=== PATIENT | male | born 1955 | race Caucasian/White ===

== ENCOUNTER 2020-01-08 14:22 | Emergency (ER) | payer BC, OTHER ==
[~2020-01-08] VITALS: Ht 172.7 cm; Wt 98.2 kg
[2020-01-08 15:17] VITALS: BP 162/89
== END 2020-01-08 15:30 | disposition home or self-care (01) ==
LOC: FSED 14:50
DX: S00.83XA Contusion of other part of head, initial encounter (principal); W01.190A Fall on same level from slipping, tripping and stumbling with subsequent striking against furniture, initial encounter; Y93.01 Activity, walking, marching and hiking; Y92.008 Other place in unspecified non-institutional (private) residence as the place of occurrence of the external cause; I10 Essential (primary) hypertension; E78.5 Hyperlipidemia, unspecified
CPT/HCPCS: 70450; 99283

== ENCOUNTER 2020-03-04 11:34 | Emergency (ER) | payer OTHER ==
[~2020-03-04] VITALS: Ht 175.3 cm; Wt 97.7 kg
[2020-03-04] MEDS ORDERED: CLARINEX-D 121 EACH (11:55)
[2020-03-04] MEDS ORDERED: BACITRACIN ZINC 15 GM OINT TOP STA (13:18)
[2020-03-04] MEDS ORDERED: BACTRIM DS TAB1 EACH PO (13:26)
[2020-03-04] MEDS ORDERED: CIPRO500 MG PO (13:26)
[2020-03-04] MEDS ORDERED: MOTRIN800 MG PO (13:26)
[2020-03-04] MEDS ORDERED: BACITRACIN ZINC 0.9GM TP ONE (13:31)
[2020-03-04 13:36] VITALS: BP 153/82
== END 2020-03-04 13:40 | disposition home or self-care (01) ==
LOC: FSED 11:45
DX: S92.535A Nondisplaced fracture of distal phalanx of left lesser toe(s), initial encounter for closed fracture (principal); W22.03XA Walked into furniture, initial encounter; Y93.01 Activity, walking, marching and hiking; Y92.008 Other place in unspecified non-institutional (private) residence as the place of occurrence of the external cause; E78.5 Hyperlipidemia, unspecified; G62.9 Polyneuropathy, unspecified
CPT/HCPCS: 99283

== ENCOUNTER 2020-04-26 10:26 | Emergency (ER) | payer OTHER ==
[~2020-04-26] VITALS: Ht 172.7 cm; Wt 95.3 kg
[~2020-04-26 10:26] MED LIST: BACTRIM DS TAB1 EACH PO; CIPRO500 MG PO; CLARINEX-D 121 EACH; MOTRIN800 MG PO
[2020-04-26] MEDS ORDERED: SODIUM CHLORIDE 0.9% 1000ML 1,000 ML IV STA (10:35)
[2020-04-26] MEDS ORDERED: EPINEPHRINE HCL 1:1000 1ML 1 MG/ML AMP INJ STA (10:35)
[2020-04-26] MEDS ORDERED: METHYLPREDNISOLONE SOD SUCC 125 MG/2ML VIAL IV STA (10:35)
[2020-04-26] MEDS ORDERED: FAMOTIDINE 20 MG/2 ML VIAL IV STA (10:35)
[2020-04-26] MEDS ORDERED: DIPHENHYDRAMINE HCL INJ 50 MG/ML VIAL IV STA (10:35)
[2020-04-26] MEDS ORDERED: EPINEPHRINE HCL 1:1000 1ML 1 MG/ML AMP ONE (10:44)
[2020-04-26] MEDS ORDERED: SODIUM CHLORIDE 0.9% 1000ML 1,000 ML ONE (10:48)
[2020-04-26] MEDS ORDERED: PEPCID20 MG PO (11:42)
[2020-04-26] MEDS ORDERED: AZITHROMYCIN250 MG PO (11:42)
[2020-04-26] MEDS ORDERED: PREDNISONE20 MG PO (11:42)
[2020-04-26 12:00] VITALS: BP 155/70
== END 2020-04-26 11:49 | disposition home or self-care (01) ==
LOC: FSED 10:40
DX: R21 Rash and other nonspecific skin eruption (principal); T88.6XXA Anaphylactic reaction due to adverse effect of correct drug or medicament properly administered, initial encounter; T36.8X5A Adverse effect of other systemic antibiotics, initial encounter; E78.5 Hyperlipidemia, unspecified; G62.9 Polyneuropathy, unspecified
CPT/HCPCS: 96372; 96374; 96375; 99284; J0171; J2930; J7030; J1200

== ENCOUNTER 2021-03-05 10:45 | Emergency (ER) | payer OTHER ==
[~2021-03-05] VITALS: Ht 172.7 cm; Wt 90.7 kg
[~2021-03-05 10:45] MED LIST changes: +AZITHROMYCIN250 MG PO; +PEPCID20 MG PO; +PREDNISONE20 MG PO
[2021-03-05 11:22] LABS: BASOPHILS # (AUTO) 0.1 (0.0-0.1); BASOPHILS % 0.6 % (0.0-1.0); EOSINOPHILS # (AUTO) 0.1 (0.0-0.4); EOSINOPHILS % 1.5 % (0.0-6.0); HEMOGLOBIN 13.8 g/dL (14.0-18.0); LYMPHOCYTES # (AUTO) 1.2 (1.0-3.2); LYMPHOCYTES % 14.9 % (18.0-39.1); MEAN CORPUSCULAR HEMOGLOBIN 31.9 pg (28-32); MEAN CORPUSCULAR HGB CONC 32.9 g/dL (31-35); MEAN CORPUSCULAR VOLUME 97.2 fL (81-99); MONOCYTES # (AUTO) 0.5 (0.2-0.8); MONOCYTES % 5.6 % (4.4-11.3); NEUTROPHILS # (AUTO) 6.1 (2.1-6.9); NEUTROPHILS % 76.6 % (38.7-80.0); PLATELET COUNT 237 x10e3/uL (140-360); RED BLOOD COUNT 4.32 x10e6/uL (4.3-5.7); RED CELL DISTRIBUTION WIDTH 13.2 % (11.7-14.4)
[2021-03-05 11:43] LABS: ALBUMIN 4.1 g/dL (3.5-5.0); ALBUMIN/GLOBULIN RATIO 1.4 (0.8-2.0); ANION GAP 13.7 mmol/L (8-16); CALCIUM 9.7 mg/dL (8.4-10.2); CREATININE, SERUM 1.05 mg/dL (0.72-1.25); POTASSIUM 3.7 mmol/L (3.5-5.1)
== END 2021-03-05 12:25 | disposition home or self-care (01) ==
LOC: ER 11:00
DX: R42 Dizziness and giddiness (principal); G20 Parkinson's disease; I10 Essential (primary) hypertension; E78.5 Hyperlipidemia, unspecified; G62.9 Polyneuropathy, unspecified
CPT/HCPCS: 36415; 70450; 71045; 80053; 83880; 84484; 85025; 93005; 99284

== ENCOUNTER 2023-01-07 07:46 | Emergency (ER) | payer OTHER ==
[~2023-01-07] VITALS: Ht 172.7 cm; Wt 95.3 kg
[~2023-01-07 07:46] MED LIST changes: +AMANTADINE100 MG PO; +ATENOLOL25 MG PO; +ATORVASTATIN CA20 MG PO; +COQ-10100 MG PO; +KEFLEX125 MG/5 M PO; +MAGNESIUM OXID400 MG PO; +SINEMET 25-1001 EACH PO; +[UNRECOGNIZED DRUG - OTHER] PO; +[UNRECOGNIZED DRUG - REMARK] PO
[2023-01-07 08:37] VITALS: O2SAT 100
[2023-01-07] MEDS ORDERED: CYCLOBENZAPRINE5 MG PO (09:01)
[2023-01-07] MEDS ORDERED: NAPROXEN250 MG PO (09:02)
== END 2023-01-07 09:17 | disposition home or self-care (01) ==
LOC: ER 07:52
DX: S13.4XXA Sprain of ligaments of cervical spine, initial encounter (principal); V43.52XA Car driver injured in collision with other type car in traffic accident, initial encounter; Y92.488 Other paved roadways as the place of occurrence of the external cause; I10 Essential (primary) hypertension; E78.5 Hyperlipidemia, unspecified; M54.9 Dorsalgia, unspecified; G89.29 Other chronic pain; G20.A1 Parkinson's disease without dyskinesia, without mention of fluctuations
CPT/HCPCS: 99282